=== PATIENT | female | born 1990 | race Caucasian/White ===

== ENCOUNTER 2018-09-01 17:32 | Emergency (ER) | payer OTHER ==
[2018-09-01 17:43] VITALS: BMI 35.0
--- NOTE | 2018-09-01 19:40 | PDOC ---
History of Present Illness - General Chief Complaint: Pain Stated Complaint: HEADACHE Time Seen by Provider: 09/01/18 19:24 - History of Present Illness Initial Comments: 27yo F with PMH of migraines, DM, asthma presenting with headache. Patient states she has had a headache since Tuesday that has been gradual in onset and started while she was at work. For the first two days, patient has been able to control her migraine with NSAIDs. This morning, however, patient attempted to take Excedrin migraine but vomited up the medicine. She attempted to take this regimen again in the afternoon, but vomited once again. Patient also endorses myalgias, back pain, and dizziness. Endorses photophobia, but no vision changes. No focal weakness or paraesthesias. Denies recent fall or injury. No hemoptysis, no recent surgical history, no recent immobilization, no hormone use , no history of DVT or PE. Denies recent travel or sick contacts. Reports chills , but no fevers. Past History - Past Medical History Allergies/Adverse Reactions: Allergies Allergy/AdvReac Type Severity Reaction Status Date / Time shellfish derived Allergy Swelling Verified 09/01/18 17:38 Home Medications: Ambulatory Orders Acetaminophen [Tylenol -] 650 mg PO Q6H PRN #30 tablet 09/02/18 Cephalexin [Keflex] 500 mg PO BID #13 capsule 09/02/18 Ondansetron [Zofran Odt -] 4 mg SL TID #21 od.tablet 09/02/18 - Suicide/Smoking/Psychosocial Hx Smoking History: Never smoked Have you smoked in the past 12 months: No Hx Alcohol Use: No Drug/Substance Use Hx: No Review of Systems - Review of Systems Comments:: Constitutional: no fever, +chills HEENT: no throat pain, no dysphagia Cardiovascular: no chest pain, no palpitations Respiratory: no cough, no shortness of breath Gastrointestinal: +abdominal pain, +nausea Genitourinary: no dysuria, no frequency Musculoskeletal: +myalgia, no arthralgia Skin: no rash, no itching Neurologic: +headache, +dizziness *Physical Exam - Vital Signs Last Vital Signs Temp Pulse Resp BP Pulse Ox 98.7 F 133 H 20 114/75 99 09/01/18 17:38 09/01/18 17:38 09/01/18 17:38 09/01/18 17:38 09/01/18 17:38 - Physical Exam Comments: General: Awake, alert, and fully oriented, moaning in pain Head: No signs of trauma Eyes: EOMI, sclera anicteric ENT: Dry mucus membranes Neck: Normal ROM, supple, no meningismus Lungs: Lungs clear, Normal breath sounds Cardio: Regular rhythm, S1 and S2 present Abdomen: Epigastric tenderness upon palpation. Soft, nondistended. No guarding, no rebound, no masses Extremities: Normal range of motion, Distal pulses present SKIN: Warm, Dry, normal turgor Neurologic: Cranial nerves II through XII intact. Normal speech, sensation, strength, coordination. Back: Tender to palpation in posterior right shoulder and along right-sided paraspinal muscles, no step-offs/deformities/fluctuance; no overlying wound or lesion Moderate Sedation - Procedure Monitoring Vital Signs: Procedure Monitoring Vital Signs Temperature 98.7 F 09/01/18 17:38 Pulse Rate 133 H 09/01/18 17:38 Respiratory Rate 20 09/01/18 17:38 Blood Pressure 114/75 09/01/18 17:38 O2 Sat by Pulse Oximetry (%) 99 09/01/18 17:38 ED Treatment Course - LABORATORY CBC & Chemistry Diagram: 09/01/18 20:30 09/02/18 00:29 Medical Decision Making - Medical Decision Making 27yo F with PMH of migraines, DM, asthma presenting with headache. DDX including but not limited to complex migraine, brain bleed, brain mass, tension headache, temporal arteritis DDX including but not limited to biliary colic, gastritis, , pancreatitis CBC, CMP, Lipase, UA, UCx, UPreg RUQ US 1L NS, 1g Ofirmev, 10 Reglan IV Will reassess 09/01/18 20:10 No anemia or leukocytosis Lipase nl Upreg negative UA with +3 glucose, +4 ketones, bacteriuria, keflex ordered Trace, positive, Acetone. Plan to hydrate with another 1L NS. Will repeat CMP and Acetone Headache improved, now 3/10 Nausea improved Patient able to sip water with antibiotic No vomiting since receiving reglan RUQ US without acute pathology 09/01/18 23:50 Patient complaining of 8/10 headache Toradol given Second Acetone negative 09/02/18 02:36 Plan to discharge *DC/Admit/Observation/Transfer Diagnosis at time of Disposition: Headache Qualifiers: Headache type: tension-type Headache chronicity pattern: acute headache Intractability: not intractable Qualified Code(s): G44.209 - Tension-type headache, unspecified, not intractable - Discharge Dispostion Disposition: HOME Condition at time of disposition: Stable - Prescriptions Prescriptions: Acetaminophen [Tylenol -] 650 mg PO Q6H PRN #30 tablet PRN Reason: Pain Cephalexin [Keflex] 500 mg PO BID #13 capsule Ondansetron [Zofran Odt -] 4 mg SL TID #21 od.tablet - Referrals Referrals: ON STAFF,NOT [Primary Care Provider] - - Patient Instructions Printed Discharge Instructions: DI for Migraine Additional Instructions: You came to the ED for a headache. Your urinalysis indicated an infection. Prescription for antibiotics and antinausea sent to your pharmacy. You can take [id number] tylenol or motrin for your headache. Follow the instructions on the medication bottle. Follow-up with your neurologist or your primary care physician this week to discuss this ED visit and to further evaluate your headache. Your care is not complete until you do so. Call and make an appointment. Medical attention is required if: you experience persistent symptoms, severe headache, have a seizure, or have focal numbness or weakness. If you think you are having an emergency, call for emergency medical services or present to the emergency department right away - Post Discharge Activity
[2018-09-01] MEDS ORDERED: SODIUM CHLORIDE 1,000 ML IV STA ×2 (19:50→22:08)
[2018-09-01] MEDS ORDERED: ACETAMINOPHEN 1000 MG/100 ML VIAL (NON FORMULARY) IVPB ONE (19:50)
[2018-09-01] MEDS ORDERED: METOCLOPRAMIDE HCL INJECTION 10 MG/2 ML VIAL IVPUSH ONE (19:50)
[2018-09-01] MEDS ORDERED: METOCLOPRAMIDE HCL INJECTION 10 MG/2 ML VIAL ONE (19:54)
[2018-09-01] MEDS ORDERED: ACETAMINOPHEN INJECTION 100 ML IVPB ONE (19:55)
--- NOTE | 2018-09-01 20:38 | PDOC ---
Attending Attestation - Resident Resident Name: aCt Mueller - ED Attending Attestation I have performed the following: I have examined & evaluated the patient, The case was reviewed & discussed with the resident, I agree w/resident's findings & plan, Exceptions are as noted - HPI HPI: 09/01/18 20:27 The patient is a 27 year old female, with a significant past medical history of migraines, DM, and asthma who presents to the emergency department with 3 days of headaches. The patient notes she has had an intermittent headache since tuesday. She states this feels exactly like her usual headaches. It has been controlled by excedrin the past 2 days, but today pt was unable to keep any meds down due to vomiting. Pt denies neck pain, denies fevers. Denies thunderclap or worst headache of life. Pt also endorses abdominal pain radiating from RUQ to her back. The patient denies shortness of breath, fever, chills, diarrhea or constipation. The patient denies dysuria, frequency, urgency or hematuria. Allergies: NKDA Past surgical history: None reported Social history: None reported PCP: Not on Staff - Physicial Exam PE: 09/01/18 20:38 "GENERAL: Awake, alert, and fully oriented, in no acute distress. HEAD: No signs of trauma EYES: PERRLA, EOMI, sclera anicteric, conjunctiva clear ENT: Auricles normal inspection, hearing grossly normal, nares patent, oropharynx clear without exudates. Moist mucosa NECK: Nontender, no stepoffs, Normal ROM, supple, no lymphadenopathy, JVD, or masses LUNGS: Breath sounds equal, clear to auscultation bilaterally. No wheezes, and no crackles HEART: Regular rate and rhythm, normal S1 and S2, no murmurs, rubs or gallops ABDOMEN: + RUQ TTP EXTREMITIES: Normal range of motion, no edema. No clubbing or cyanosis. No cords, erythema, or tenderness NEUROLOGICAL: Cranial nerves II through XII intact. 5/5 strength and sensation in all extremities, Normal speech, normal gait, normal cerebellar function SKIN: Warm, Dry, normal turgor, no rashes or lesions noted. - Medical Decision Making 09/01/18 20:39 27 F with headache, vomiting, and abdominal pain. RODRIGEZ is consistent with pt's usual migraines. No red flags for other acute process such as SAH/meningitis. Pt also has RUQ abdominal pain, with + schofield's. Will r/o jaclyn. - Labs - RUQ sono - IVF, tylenol, reglan 09/01/18 22:51 Labs wnl other than + ketones in UA. Given h/o DM will send serum ketones to r/ o DKA, though AG is only 13. US negative Pt reassessed - now with no abdominal tenderness RODRIGEZ improved, now with minimal pain. 09/02/18 02:14 Repeat labs improved, AG 8 Pt is well appearing, with normal vitals. Clinically stable for DC at this time. I discussed the physical exam findings, ancillary test results and final diagnoses with the patient. I answered all of the patient's questions. The patient was satisfied with the care received and felt comfortable with the discharge plan and treatment plan. The patient agrees to follow up with the primary care physician within 24-72 hours. <Remberto Richey - Last Filed: 09/02/18 02:15> Attestations - Attestations 09/01/18 23:02 Documentation prepared by Layo Pabon, acting as medical affairs director for Remberto Richey MD, MD <Layo Pabon - Last Filed: 09/01/18 23:02>
[2018-09-01 20:59] LABS: BASO % 0.2 % (0-2.0); HEMATOCRIT 37.8 % (32.4-45.2); HEMOGLOBIN 13.4 GM/dL (10.7-15.3); LYMPH % 13.4 % (8-40); MCH 29.1 pg (25.7-33.7); MCHC 35.4 g/dl (32.0-36.0); MEAN CELL VOLUME 82.2 fl (80-96); MEAN PLT VOLUME 7.2 fl (7.5-11.1); MONO % 5.7 % (3.8-10.2); NEUT % 80.7 % (42.8-82.8); PLATELET COUNT 275 K/MM3 (134-434); RDW 15.5 % (11.6-15.6); WHITE BLOOD COUNT 7.1 K/mm3 (4.0-10.0)
[2018-09-01 21:04] LABS: EPI CELLS 6.6 /HPF (0-5); HYALINE CASTS 18 /hpf (0-8); PH,URINE 5.5 (5.0-8.0); URINE APPEARANCE CLOUDY; URINE BACTERIA 526.59 /hpf (NEGATIVE); URINE BILIRUBIN NEGATIVE (<2.0 mg/dL); URINE COLOR YELLOW; URINE GLUCOSE (UA) 3+ (NEGATIVE); URINE KETONE 4+ (NEGATIVE); URINE LEUK ESTERASE NEGATIVE (NEGATIVE); URINE NITRITE NEGATIVE (NEGATIVE); URINE PROTEIN 1+ (NEGATIVE); URINE RBC 3 /hpf (0-4); URINE UROBILINOGEN 0.2 mg/dL (0.2-1.0)
[2018-09-01 21:18] LABS: ALBUMIN 3.3 g/dl (3.4-5.0); ALK PHOS 81 U/L (45-117); ANION GAP 13 MMOL/L (8-16); BILIRUBIN,TOTAL 0.3 mg/dL (0.2-1); BLOOD UREA NITROGEN 6 mg/dL (7-18); CALCIUM 8.8 mg/dL (8.5-10.1); CHLORIDE 100 mmol/L (98-107); CO2 21 mmol/L (21-32); CREATININE 0.7 mg/dL (0.55-1.3); GLUCOSE,RANDOM 295 mg/dL (74-106); LIPASE 162 U/L (73-393); POTASSIUM 3.5 mmol/L (3.5-5.1); SGOT/AST 31 U/L (15-37); SGPT/ALT 41 U/L (13-61); SODIUM 135 mmol/L (136-145); TOT PROT 7.4 g/dl (6.4-8.2)
[2018-09-01 21:36] LABS: URINE WBC 54.5 /hpf (0-5)
[2018-09-01] MEDS ORDERED: CEPHALEXIN MONOHYDRATE 500 MG CAPSULE (UD) PO ONE (22:50)
[2018-09-01] MEDS ORDERED: CEPHALEXIN MONOHYDRATE 500 MG CAPSULE (UD) ONE (22:59)
[2018-09-02 01:12] LABS: ALBUMIN 3.1 g/dl (3.4-5.0); ALK PHOS 71 U/L (45-117); ANION GAP 8 MMOL/L (8-16); BILIRUBIN,TOTAL 0.3 mg/dL (0.2-1); BLOOD UREA NITROGEN 6 mg/dL (7-18); CALCIUM 8.2 mg/dL (8.5-10.1); CHLORIDE 104 mmol/L (98-107); CO2 25 mmol/L (21-32); CREATININE 0.6 mg/dL (0.55-1.3); GLUCOSE,RANDOM 293 mg/dL (74-106); POTASSIUM 3.7 mmol/L (3.5-5.1); SGOT/AST 30 U/L (15-37); SGPT/ALT 40 U/L (13-61); SODIUM 137 mmol/L (136-145); TOT PROT 6.9 g/dl (6.4-8.2)
[2018-09-02] MEDS ORDERED: KETOROLAC TROMETHAMINE 30 MG/1 ML VIAL IVPUSH ONE (01:27)
[2018-09-02] MEDS ORDERED: KETOROLAC TROMETHAMINE 30 MG/1 ML VIAL ONE (01:35)
[2018-09-02] MEDS ORDERED: ONDANSETRON 4 MG/2 ML VIAL IVPUSH ONE (02:17)
[2018-09-02] MEDS ORDERED: ONDANSETRON 4 MG/2 ML VIAL ONE (02:41)
[2018-09-02 02:42] VITALS: BP 130/69; PULSE 89; TEMP 98.2
[2018-09-02 02:42] LABS: ACETONE SERUM NEGATIVE (NEGATIVE)
== END 2018-09-02 02:47 | disposition home or self-care (01) ==
LOC: JER 17:32
PROC: 3E033GC Introduction of Other Therapeutic Substance into Peripheral Vein, Percutaneous Approach (ICD-10-PCS; principal; 2018-09-01)
PROC: 3E0333Z Introduction of Anti-inflammatory into Peripheral Vein, Percutaneous Approach (ICD-10-PCS; 2018-09-01)
PROC: 3E033NZ Introduction of Analgesics, Hypnotics, Sedatives into Peripheral Vein, Percutaneous Approach (ICD-10-PCS; 2018-09-01)
PROC: 3E0337Z Introduction of Electrolytic and Water Balance Substance into Peripheral Vein, Percutaneous Approach (ICD-10-PCS; 2018-09-01)
DX: G44.209 Tension-type headache, unspecified, not intractable (principal)
CPT/HCPCS: 36415; 76705-TC; 80053; 81003; 82009; 83690; 84703; 85025; 87086; 87186; 99283-25; J0131; J7030